=== PATIENT | female | born 1990 ===

== ENCOUNTER 2020-05-05 02:07 | Inpatient (IN) | payer SELFPAY ==
[2020-05-05] MEDS ORDERED: Butorphanol 1 MG/ML SDV IVPUSH PRN (05:32)
[2020-05-05] MEDS ORDERED: Sodium Chloride 0.9% 10 ML Syringe FLUSH PRN (05:32)
[2020-05-05] MEDS ORDERED: Misoprostol 200 MCG Tab PO PRN (05:32)
[2020-05-05] MEDS ORDERED: Lidocaine 1% 50 ML MDV INJECT PRN (05:32)
[2020-05-05] MEDS ORDERED: Nalbuphine 10 MG/1 ML Vial IVPUSH PRN (05:32)
[2020-05-05] MEDS ORDERED: Water For Irrigation,Sterile 1,000 ML Container IRR PRN (05:32)
[2020-05-05] MEDS ORDERED: Sodium Chloride 0.9% 2.5 ML Syringe FLUSH PRN (05:32)
[2020-05-05] MEDS ORDERED: Tranexamic Acid 1,000 MG in Sodium Chloride 0.9% 100 ML IV PRN (05:32)
[2020-05-05] MEDS ORDERED: Carboprost Tromethamine 250 MCG/1 ML Amp IM PRN (05:32)
[2020-05-05] MEDS ORDERED: Sodium Chloride 0.9% 10 ML SDV IV PRN (05:32)
[2020-05-05] MEDS ORDERED: Methylergonovine 0.2 MG/1 ML Amp IM PRN ×2 (05:32→14:31)
[2020-05-05] MEDS ORDERED: Lactated Ringers 1,000 ML IV SCH (05:45)
[2020-05-05] MEDS ORDERED: Oxytocin/0.9 % Sodium Chloride 30 UNIT/500 ML BAG IV SCH ×2 (05:45→11:15)
[2020-05-05] MEDS ORDERED: fentaNYL 100 MCG/2 ML SDV ONE (08:02)
[2020-05-05] MEDS ORDERED: Ropivacaine 0.2% PF 2 MG/ML 20 ML SDV ONE (08:02)
[2020-05-05] MEDS ORDERED: Ropivacaine HCl/PF 100 ML ONE (08:03)
--- NOTE | 2020-05-05 08:44 | PCM.PREANE ---
Preanesthetic Assessment - Procedure Proposed Procedure: CRAIG - Anesthesia/Transfusion/Family Hx Anesthesia History: Prior Anesthesia Without Reaction Family History of Anesthesia Reaction: No Transfusion History: No Prior Transfusion(s) Intubation History: Unknown - Review of Systems General: No Symptoms Pulmonary: No Symptoms Cardiovascular: No Symptoms Gastrointestinal: No Symptoms Neurological: No Symptoms Other: Reports: None - Physical Assessment NPO Status Date: 05/05/20 NPO Status Time: 08:42 Height: 1.65 m Weight: 113.398 kg ASA Class: 2 Mental Status: Alert & Oriented x3 Airway Class: Mallampati = 2 Dentition: Reports: Normal Dentition Thyro-Mental Finger Breadths: 3 Mouth Opening Finger Breadths: 3 ROM/Head Extension: Full Lungs: Clear to Auscultation Cardiovascular: Regular Rate - Lab Values: Laboratory Last Values WBC 13.35 K/uL (4.0-11.0) H 05/05/20 06:40 RBC 3.91 M/uL (4.30-5.90) L 05/05/20 06:40 Hgb 11.1 g/dL (12.0-16.0) L 05/05/20 06:40 Hct 34.6 % (36.0-46.0) L 05/05/20 06:40 MCV 88.5 fL (80.0-98.0) 05/05/20 06:40 MCH 28.4 pg (27.0-32.0) 05/05/20 06:40 MCHC 32.1 g/dL (31.0-37.0) 05/05/20 06:40 RDW Std Deviation 42.5 fl (28.0-62.0) 05/05/20 06:40 RDW Coeff of Demetria 13 % (11.0-15.0) 05/05/20 06:40 Plt Count 371 K/uL (150-400) 05/05/20 06:40 MPV 9.20 fL (7.40-12.00) 05/05/20 06:40 Nucleated RBC % 0.0 /100WBC 05/05/20 06:40 Nucleated RBCs # 0 K/uL 05/05/20 06:40 COVID-19 (KARISSA) NEGATIVE (NEGATIVE) 05/05/20 05:45 Blood Type O NEGATIVE 05/05/20 06:40 Antibody Screen NEGATIVE 05/05/20 06:40 - Allergies Allergies/Adverse Reactions: Allergies Allergy/AdvReac Type Severity Reaction Status Date / Time escitalopram Allergy Muscle Verified 06/06/16 20:44 Aches - Blood Blood Available: No Product(s) Available: None - Anesthesia Plan Pre-Op Medication Ordered: None - Acknowledgements Anesthesia Type Planned: Epidural Pt an Appropriate Candidate for the Planned Anesthesia: Yes Alternatives and Risks of Anesthesia Discussed w Pt/Guardian: Yes Pt/Guardian Understands and Agrees with Anesthesia Plan: Yes Additional Comments: in active labor. Dilated 6cm. Pain 08/05. Discussed, ? answered, permit signed, wishes to proceed. Acceptable candidate. PreAnesthesia Questionnaire HEENT History: Reports: Impaired Vision Cardiovascular History: Reports: None Respiratory History: Reports: None Gastrointestinal History: Reports: GERD, Other (See Below) Other Gastrointestinal History: with MATERIAL RECLAIMER History: Reports: Musculoskeletal History: Reports: None Neurological History: Reports: Migraines Psychiatric History: Reports: Anxiety, Depression Endocrine/Metabolic History: Reports: None Hematologic History: Reports: None Immunologic History: Reports: None Oncologic (Cancer) History: Reports: None Dermatologic History: Reports: None - Infectious Disease History Infectious Disease History: Reports: Chicken Pox - Past Surgical History HEENT Surgical History: Reports: None GI Surgical History: Reports: None Neurological Surgical History: Reports: None - SUBSTANCE USE Smoking Status *Q: Never Smoker Second Hand Smoke Exposure: No Recreational Drug Use History: No - HOME MEDS Home Medications: Home Meds Omeprazole Magnesium [Prilosec Otc] 20 mg PO QPM 05/05/20 [History] Vits #93/Iron Fum/FA [ Formula Tablet] 1 each PO QPM 05/05/20 [History] - CURRENT (IN HOUSE) MEDS Current Meds: Current Medications Butorphanol Tartrate (Stadol) 1 mg IVPUSH Q1H PRN PRN Reason: Pain Carboprost Tromethamine (Hemabate Ds) 250 mcg IM ASDIRECTED PRN PRN Reason: Post Hemorrhage Lactated Ringer's (Ringers, Lactated) 1,000 mls @ 150 mls/hr IV ASDIRECTED MONICA Last Admin: 05/05/20 06:44 Dose: 150 mls/hr Documented by: Oxytocin/Sodium Chloride (Oxytocin 30 Unit/500 Ml-Ns) 30 unit in 500 mls @ 999 mls/hr IV TITRATE MONICA Tranexamic Acid 1,000 mg/ (Sodium Chloride) 110 mls @ 660 mls/hr IV ONETIME PRN PRN Reason: Bleeding Lidocaine HCl (Xylocaine 1%) 50 ml INJECT ONETIME PRN PRN Reason: Laceration repair Methylergonovine Maleate (Methergine) 0.2 mg IM ASDIRECTED PRN PRN Reason: Post Hemorrhage Misoprostol (Cytotec) 200 mcg PO ONETIME PRN PRN Reason: Post Hemorrhage Nalbuphine HCl (Nubain) 10 mg IVPUSH Q1H PRN PRN Reason: Pain (severe 7-10) Sodium Chloride (Saline Flush) 10 ml FLUSH ASDIRECTED PRN PRN Reason: Keep Vein Open Sodium Chloride (Saline Flush) 2.5 ml FLUSH ASDIRECTED PRN PRN Reason: Keep Vein Open Sodium Chloride (Normal Saline) 10 ml IV ASDIRECTED PRN PRN Reason: IV Use Sterile Water (Sterile Water For Irrigation) 1,000 ml IRR ASDIRECTED PRN PRN Reason: delivery Discontinued Medications Fentanyl (Sublimaze) Confirm Administered Dose 100 mcg .ROUTE .[facility] ONE Stop: 05/05/20 08:03 Ropivacaine (Naropin 0.2%) Confirm Administered Dose 100 mls @ as directed .ROUTE .[facility] ONE Stop: 05/05/20 08:04 Ropivacaine (Naropin 0.2%) Confirm Administered Dose 20 ml .ROUTE .STK-MED ONE Stop: 05/05/20 08:03
[2020-05-05] MEDS ORDERED: Lanolin 100% Cream 7 GM Tube TOP PRN (14:31)
[2020-05-05] MEDS ORDERED: Witch Hazel Medicated Pads 40/Jar TOP PRN (14:31)
[2020-05-05] MEDS ORDERED: Benzocaine/Menthol 20%-0.5% Spray 78 GM Cannister TOP PRN (14:31)
[2020-05-05] MEDS ORDERED: Acetaminophen 500 MG Tab PO PRN (14:31)
[2020-05-05] MEDS ORDERED: Ibuprofen 400 MG Tab PO PRN (14:31)
[2020-05-05] MEDS ORDERED: Docusate Sodium 100 MG Cap PO PRN (14:31)
[2020-05-05] MEDS ORDERED: Bisacodyl 10 MG Supp RECTAL PRN (14:31)
--- NOTE | 2020-05-05 14:38 | PCM.DEL ---
<Ponce Graff - Last Filed: 05/06/20 00:54> L & D Note - General Info Date of Service: 05/05/20 - Delivery Note Labor: Spontaneous, Augmented by ARM, Augmented by Oxytocin Delivery Outcome: Livebirth Infant Delivery Method: Spontaneous Vaginal Delivery-Single Delivery Mode: Spontaneous Presentation: Left Occiput Anterior (CARLOS) Nuchal Cord: None Anesthesia Type: Epidural Amniotic Fluid Description: Clear Episiotomy Type: None Laceration: 2nd Degree Suture size: 3-0 (monocryl) Placenta: Intact, Spontaneous Cord: 3 Vessels Estimated Blood Loss: 100 Resuscitation Needed: No : Suctioned, Bulb Syringe, Stimulated, Warmed Second Stage Interventions: Reports: Pushing Effectively, Pushing, Feet in Foot Rests Delivery Comments (Free Text/Narrative):: liveborn female infant, weight 3280g, apgars 8 and 9 - Patient Data Weight - Most Recent: 113.398 kg Lab Results Last 24 Hours: Laboratory Results - last 24 hr 05/05/20 05/05/20 05/05/20 Range/Units 05:45 06:40 06:40 WBC 13.35 H (4.0-11.0) K/uL RBC 3.91 L (4.30-5.90) M/uL Hgb 11.1 L (12.0-16.0) g/dL Hct 34.6 L (36.0-46.0) % MCV 88.5 (80.0-98.0) fL MCH 28.4 (27.0-32.0) pg MCHC 32.1 (31.0-37.0) g/dL RDW Std Deviation 42.5 (28.0-62.0) fl RDW Coeff of Demetria 13 (11.0-15.0) % Plt Count 371 (150-400) K/uL MPV 9.20 (7.40-12.00) fL Nucleated RBC % 0.0 /100WBC Nucleated RBCs # 0 K/uL COVID-19 (KARISSA) NEGATIVE (NEGATIVE) Blood Type O NEGATIVE Antibody Screen NEGATIVE Med Orders - Current: Current Medications Discontinued Medications Butorphanol Tartrate (Stadol) 1 mg IVPUSH Q1H PRN PRN Reason: Pain Carboprost Tromethamine (Hemabate Ds) 250 mcg IM ASDIRECTED PRN PRN Reason: Post Hemorrhage Fentanyl (Sublimaze) Confirm Administered Dose 100 mcg .ROUTE .[facility] ONE Stop: 05/05/20 08:03 Last Admin: 05/05/20 11:09 Dose: Not Given Documented by: Lactated Ringer's (Ringers, Lactated) 1,000 mls @ 150 mls/hr IV ASDIRECTED MONCIA Last Admin: 05/05/20 06:44 Dose: 150 mls/hr Documented by: Oxytocin/Sodium Chloride (Oxytocin 30 Unit/500 Ml-Ns) 30 unit in 500 mls @ 999 mls/hr IV TITRATE MONICA Tranexamic Acid 1,000 mg/ (Sodium Chloride) 110 mls @ 660 mls/hr IV ONETIME PRN PRN Reason: Bleeding Ropivacaine (Naropin 0.2%) Confirm Administered Dose 100 mls @ as directed .ROUTE .[facility] ONE Stop: 05/05/20 08:04 Last Admin: 05/05/20 11:10 Dose: Not Given Documented by: Oxytocin/Sodium Chloride (Oxytocin 30 Unit/500 Ml-Ns) 30 unit in 500 mls @ 2 mls/hr IV TITRATE [facility]; Protocol Last Infusion: 05/05/20 11:46 Dose: 4 munits/min, 4 mls/hr Documented by: Lidocaine HCl (Xylocaine 1%) 50 ml INJECT ONETIME PRN PRN Reason: Laceration repair Methylergonovine Maleate (Methergine) 0.2 mg IM ASDIRECTED PRN PRN Reason: Post Hemorrhage Misoprostol (Cytotec) 200 mcg PO ONETIME PRN PRN Reason: Post Hemorrhage Nalbuphine HCl (Nubain) 10 mg IVPUSH Q1H PRN PRN Reason: Pain (severe 7-10) Ropivacaine (Naropin 0.2%) Confirm Administered Dose 20 ml .ROUTE .[facility] ONE Stop: 05/05/20 08:03 Last Admin: 05/05/20 11:08 Dose: Not Given Documented by: Sodium Chloride (Saline Flush) 10 ml FLUSH ASDIRECTED PRN PRN Reason: Keep Vein Open Sodium Chloride (Saline Flush) 2.5 ml FLUSH ASDIRECTED PRN PRN Reason: Keep Vein Open Sodium Chloride (Normal Saline) 10 ml IV ASDIRECTED PRN PRN Reason: IV Use Sterile Water (Sterile Water For Irrigation) 1,000 ml IRR ASDIRECTED PRN PRN Reason: delivery - Problem List & Annotations (1) Vaginal delivery SNOMED Code(s): 262512318 Code(s): O80 - ENCOUNTER FOR FULL-TERM UNCOMPLICATED DELIVERY Status: Acute - Problem List Review Problem List Initiated/Reviewed/Updated: Yes - Assessment Assessment:: 29yo female s/p uncomplicated - Plan Plan:: Admit for routine care Encourage Rhogam prior to discharge <Carley Gutierrez - Last Filed: 05/07/20 06:30> L & D Note - General Info Date of Service: 05/05/20 Mother's Due Date: 05/13/20 - Delivery Note Labor: Spontaneous, Augmented by ARM, Augmented by Oxytocin Delivery Outcome: Livebirth Infant Delivery Method: Spontaneous Vaginal Delivery-Single Delivery Mode: Spontaneous Presentation: Left Occiput Anterior (CARLOS) Nuchal Cord: None Anesthesia Type: Epidural Amniotic Fluid Description: Clear Episiotomy Type: None Laceration: 2nd Degree Suture size: 3-0 Placenta: Intact, Spontaneous Cord: 3 Vessels Resuscitation Needed: No : Suctioned, Bulb Syringe, Stimulated, Warmed Second Stage Interventions: Reports: Pushing Effectively, Pushing, Feet in Foot Rests Delivery Comments (Free Text/Narrative):: I was present for delivery. - Patient Data Vitals - Most Recent: Last Vital Signs Temp 36.5 C 05/06/20 07:50 Pulse 66 05/06/20 07:50 Resp 18 05/06/20 07:50 BP 121/90 05/06/20 07:50 Pulse Ox 96 05/06/20 07:50 Lab Results Last 24 Hours: Laboratory Results - last 24 hr 05/05/20 05/05/20 05/06/20 Range/Units 13:53 13:53 06:05 Hgb 9.8 L (12.0-16.0) g/dL Hct 31.1 L (36.0-46.0) % Cord ABG pH 7.361 (7.18-7.38) Cord ABG Base Excess -5 (-10--2) Cord VBG pH 7.362 (7.25-7.45) Cord VBG Base Excess -4 (-10--2) Rhogam Indicated NO, MOM+BABY RH NEG Med Orders - Current: Current Medications Acetaminophen (Tylenol Extra Strength) 500 mg PO Q4H PRN PRN Reason: Pain Acetaminophen (Tylenol Extra Strength) 1,000 mg PO Q4H PRN PRN Reason: Pain Last Admin: 05/06/20 06:22 Dose: 1,000 mg Documented by: Benzocaine/Menthol (Dermoplast Pain Relief 20%-0.5% [place]) 78 gm TOP ASDIRECTED PRN PRN Reason: Perineal Comfort Measure Last Admin: 05/05/20 16:41 Dose: 1 can Documented by: Bisacodyl (Dulcolax) 10 mg RECTAL ONETIME PRN PRN Reason: Constipation Docusate Sodium (Colace) 100 mg PO BID PRN PRN Reason: Constipation Emollient Ointment (Lansinoh Hpa) 0 gm TOP ASDIRECTED PRN PRN Reason: Sore Nipples Ibuprofen (Motrin) 400 mg PO Q4H PRN PRN Reason: Pain Ibuprofen (Motrin) 800 mg PO Q6H PRN PRN Reason: Pain Last Admin: 05/06/20 06:23 Dose: 800 mg Documented by: Methylergonovine Maleate (Methergine) 0.2 mg IM ONETIME PRN PRN Reason: Excessive Vaginal Bleeding Witch Liliana (Tucks) 1 pad TOP ASDIRECTED PRN PRN Reason: comfort care Last Admin: 05/05/20 16:41 Dose: 1 tub Documented by: Discontinued Medications Butorphanol Tartrate (Stadol) 1 mg IVPUSH Q1H PRN PRN Reason: Pain Carboprost Tromethamine (Hemabate Ds) 250 mcg IM ASDIRECTED PRN PRN Reason: Post Hemorrhage Fentanyl (Sublimaze) Confirm Administered Dose 100 mcg .ROUTE .STK-MED ONE Stop: 05/05/20 08:03 Last Admin: 05/05/20 11:09 Dose: Not Given Documented by: Lactated Ringer's (Ringers, Lactated) 1,000 mls @ 150 mls/hr IV ASDIRECTED MONICA Last Admin: 05/05/20 06:44 Dose: 150 mls/hr Documented by: Oxytocin/Sodium Chloride (Oxytocin 30 Unit/500 Ml-Ns) 30 unit in 500 mls @ 999 mls/hr IV TITRATE MONICA Tranexamic Acid 1,000 mg/ (Sodium Chloride) 110 mls @ 660 mls/hr IV ONETIME PRN PRN Reason: Bleeding Ropivacaine (Naropin 0.2%) Confirm Administered Dose 100 mls @ as directed .ROUTE .[facility] ONE Stop: 05/05/20 08:04 Last Admin: 05/05/20 11:10 Dose: Not Given Documented by: Oxytocin/Sodium Chloride (Oxytocin 30 Unit/500 Ml-Ns) 30 unit in 500 mls @ 2 mls/hr IV TITRATE [facility]; Protocol Last Infusion: 05/05/20 11:46 Dose: 4 munits/min, 4 mls/hr Documented by: Lidocaine HCl (Xylocaine 1%) 50 ml INJECT ONETIME PRN PRN Reason: Laceration repair Methylergonovine Maleate (Methergine) 0.2 mg IM ASDIRECTED PRN PRN Reason: Post Hemorrhage Misoprostol (Cytotec) 200 mcg PO ONETIME PRN PRN Reason: Post Hemorrhage Nalbuphine HCl (Nubain) 10 mg IVPUSH Q1H PRN PRN Reason: Pain (severe 7-10) Ropivacaine (Naropin 0.2%) Confirm Administered Dose 20 ml .ROUTE .[facility] ONE Stop: 05/05/20 08:03 Last Admin: 05/05/20 11:08 Dose: Not Given Documented by: Sodium Chloride (Saline Flush) 10 ml FLUSH ASDIRECTED PRN PRN Reason: Keep Vein Open Sodium Chloride (Saline Flush) 2.5 ml FLUSH ASDIRECTED PRN PRN Reason: Keep Vein Open Sodium Chloride (Normal Saline) 10 ml IV ASDIRECTED PRN PRN Reason: IV Use Sterile Water (Sterile Water For Irrigation) 1,000 ml IRR ASDIRECTED PRN PRN Reason: delivery - Problem List & Annotations (1) Vaginal delivery SNOMED Code(s): 609182010 Code(s): O80 - ENCOUNTER FOR FULL-TERM UNCOMPLICATED DELIVERY Status: Acute - Problem List Review Problem List Initiated/Reviewed/Updated: Yes - My Orders Last 24 Hours: My Active Orders 05/05/20 14:31 Acetaminophen [Tylenol Extra Strength] 1,000 mg PO Q4H PRN Acetaminophen [Tylenol Extra Strength] 500 mg PO Q4H PRN Benzocaine/Menthol [Dermoplast Pain Relief 20%-0.5% [place]] 78 gm TOP ASDIRECTED PRN Docusate Sodium [Colace] 100 mg PO BID PRN Ibuprofen [Motrin] 400 mg PO Q4H PRN Ibuprofen [Motrin] 800 mg PO Q6H PRN Lanolin [Lansinoh HPA] See Dose Instructions TOP ASDIRECTED PRN Methylergonovine [Methergine] 0.2 mg IM ONETIME PRN bisacodyL [Dulcolax] 10 mg RECTAL ONETIME PRN witch Liliana [Tucks] 1 pad TOP ASDIRECTED PRN Resuscitation Status Routine 05/05/20 14:32 Patient Status [ADT] Routine May Shower [RC] ASDIRECTED Up ad Sagrario [RC] ASDIRECTED Vital Signs [RC] PER UNIT ROUTINE Assess Lochia [WOMSER] Per Unit Routine Assess Uterine Involution [WOMSER] Per Unit Routine Perineal Care [OM.PC] Per Unit Routine Peripheral IV Discontinue [OM.PC] Routine 05/05/20 Dinner Regular Diet [DIET]
--- NOTE | 2020-05-05 15:24 | OR ---
SURGEON: Carley Gutierrez M.D. DATE OF PROCEDURE: 05/05/2020 PREOPERATIVE DIAGNOSIS: A 38-6/7 weeks' intrauterine , active spontaneous labor. POSTOPERATIVE DIAGNOSIS: A 38-6/7 weeks' intrauterine , active spontaneous labor. PROCEDURES: Pitocin augmentation of labor, artificial rupture of membranes, term spontaneous vaginal delivery, repair of second-degree laceration. PRIMARY SURGEON: Carley Gutierrez MD DENTAL INSURANCE COORDINATOR: DAV Wright. ANESTHESIA: Epidural. ESTIMATED BLOOD LOSS: Less than 300 mL. FINDINGS: Liveborn female, score of 8 and 9, weighing 3280 g. Placenta spontaneous, Schultze intact, with 3 vessels. Second-degree perineal laceration, repaired. COMPLICATIONS: None known. DISPOSITION: Mother and baby in LDR in good condition. BRIEF HISTORY: This is a 29-year-old female. She is G3, P 2-0-0-2. She presents at 38-6/7 weeks' gestation in active spontaneous labor. She progressed to 6 to 7 cm. She had artificial rupture of membranes, clear fluid was noted. However, over the following 3 hours, she had minimal progress. Therefore, Pitocin augmentation was initiated. Shortly thereafter, she did progress to complete. DESCRIPTION OF PROCEDURE: With the patient in dorsal lithotomy position, the patient pushed over one contraction to a 5+ station at which time the head was delivered spontaneously and atraumatically over the perineum with support with subsequent delivery of the infant's shoulders and body without any difficulty. The was bulb suctioned by nose and mouth and handed to the mother in the presence of the nurse attending delivery. The infant is a liveborn female, score of 8 and 9, weighing 3280 g. After the cord had ceased to pulsate, it was doubly clamped and cut. Cord blood was collected for cord ABGs as well as routine cord blood sampling. Pitocin was initiated after delivery of the to assist with delivery of the placenta, which was delivered spontaneously, Schultze intact, with 3 vessels. Upon inspection of the pelvis and perineum, there were no periurethral, vaginal sidewall, cervical, or rectal lacerations. There was a small second-degree perineal laceration that was repaired using a running lock suture of 3-0 Monocryl for the vaginal mucosa, deep running suture of the same for the perineum, and a subcuticular suture of the same for the skin. Final sponge, needle, and instrument counts were correct. There were no known complications. Mother and baby remained in LDR in good condition. RAMOS RENDON /[id number]
[2020-05-05] MEDS: Acetaminophen 500 MG Tab PO PRN (20:35)
[2020-05-05] MEDS: Ibuprofen 800 MG Tab PO PRN (20:35)
[2020-05-06] MEDS: Acetaminophen 500 MG Tab PO PRN ×2 (06:22→13:26)
[2020-05-06] MEDS: Ibuprofen 800 MG Tab PO PRN ×2 (06:23→13:27)
--- NOTE | 2020-05-06 06:43 | PCM.PNPP ---
<Ponce Graff - Last Filed: 05/06/20 06:44> - General Info Date of Service: 05/06/20 Admission Dx/Problem (Free Text): S/P . Subjective Update: Pt seen at bedside today. She is feeling well. Pain is well-controlled with tylenol and motrin. She has been ambulating well and has voided urine. Her bleeding has been heavier than in previous pregnancies, but she has not been soaking through pads. She has been tolerating oral intake with no problems. going well. Would like to be discharged at 24hrs. Functional Status: Reports: Pain Controlled, Tolerating Diet, Ambulating, Urinating - Review of Systems General: Reports: No Symptoms HEENT: Reports: No Symptoms Pulmonary: Reports: No Symptoms Cardiovascular: Reports: No Symptoms Gastrointestinal: Reports: No Symptoms Genitourinary: Reports: No Symptoms Musculoskeletal: Reports: No Symptoms Skin: Reports: No Symptoms Neurological: Reports: No Symptoms Psychiatric: Reports: No Symptoms - General Info Date of Service: 05/06/20 - Patient Data Vital Signs - Most Recent: Last Vital Signs Temp 97.9 F 05/06/20 06:00 Pulse 73 05/06/20 06:00 Resp 17 05/06/20 06:00 BP 120/81 05/06/20 06:00 Pulse Ox 99 05/06/20 06:00 Weight - Most Recent: 113.398 kg I&O - Last 24 Hours: Intake & Output 05/05/20 05/05/20 05/06/20 14:59 22:59 06:59 Output Total 175 Balance -175 Lab Results - Last 24 Hours: Laboratory Results - last 24 hr 05/05/20 05/05/20 05/05/20 Range/Units 06:40 06:40 13:53 WBC 13.35 H (4.0-11.0) K/uL RBC 3.91 L (4.30-5.90) M/uL Hgb 11.1 L (12.0-16.0) g/dL Hct 34.6 L (36.0-46.0) % MCV 88.5 (80.0-98.0) fL MCH 28.4 (27.0-32.0) pg MCHC 32.1 (31.0-37.0) g/dL RDW Std Deviation 42.5 (28.0-62.0) fl RDW Coeff of Demetria 13 (11.0-15.0) % Plt Count 371 (150-400) K/uL MPV 9.20 (7.40-12.00) fL Nucleated RBC % 0.0 /100WBC Nucleated RBCs # 0 K/uL Cord ABG pH 7.361 (7.18-7.38) Cord ABG Base Excess -5 (-10--2) Cord VBG pH 7.362 (7.25-7.45) Cord VBG Base Excess -4 (-10--2) Blood Type O NEGATIVE Antibody Screen NEGATIVE Rhogam Indicated 05/05/20 05/06/20 Range/Units 13:53 06:05 WBC (4.0-11.0) K/uL RBC (4.30-5.90) M/uL Hgb 9.8 L (12.0-16.0) g/dL Hct 31.1 L (36.0-46.0) % MCV (80.0-98.0) fL MCH (27.0-32.0) pg MCHC (31.0-37.0) g/dL RDW Std Deviation (28.0-62.0) fl RDW Coeff of Demetria (11.0-15.0) % Plt Count (150-400) K/uL MPV (7.40-12.00) fL Nucleated RBC % /100WBC Nucleated RBCs # K/uL Cord ABG pH (7.18-7.38) Cord ABG Base Excess (-10--2) Cord VBG pH (7.25-7.45) Cord VBG Base Excess (-10--2) Blood Type Antibody Screen Rhogam Indicated NO, MOM+BABY RH NEG Med Orders - Current: Current Medications Acetaminophen (Tylenol Extra Strength) 500 mg PO Q4H PRN PRN Reason: Pain Acetaminophen (Tylenol Extra Strength) 1,000 mg PO Q4H PRN PRN Reason: Pain Last Admin: 05/06/20 06:22 Dose: 1,000 mg Documented by: Benzocaine/Menthol (Dermoplast Pain Relief 20%-0.5% [place]) 78 gm TOP ASDIRECTED PRN PRN Reason: Perineal Comfort Measure Last Admin: 05/05/20 16:41 Dose: 1 can Documented by: Bisacodyl (Dulcolax) 10 mg RECTAL ONETIME PRN PRN Reason: Constipation Docusate Sodium (Colace) 100 mg PO BID PRN PRN Reason: Constipation Emollient Ointment (Lansinoh Hpa) 0 gm TOP ASDIRECTED PRN PRN Reason: Sore Nipples Ibuprofen (Motrin) 400 mg PO Q4H PRN PRN Reason: Pain Ibuprofen (Motrin) 800 mg PO Q6H PRN PRN Reason: Pain Last Admin: 05/06/20 06:23 Dose: 800 mg Documented by: Methylergonovine Maleate (Methergine) 0.2 mg IM ONETIME PRN PRN Reason: Excessive Vaginal Bleeding Witch Liliana (Tucks) 1 pad TOP ASDIRECTED PRN PRN Reason: comfort care Last Admin: 05/05/20 16:41 Dose: 1 tub Documented by: Discontinued Medications Butorphanol Tartrate (Stadol) 1 mg IVPUSH Q1H PRN PRN Reason: Pain Carboprost Tromethamine (Hemabate Ds) 250 mcg IM ASDIRECTED PRN PRN Reason: Post Hemorrhage Fentanyl (Sublimaze) Confirm Administered Dose 100 mcg .ROUTE .STK-MED ONE Stop: 05/05/20 08:03 Last Admin: 05/05/20 11:09 Dose: Not Given Documented by: Lactated Ringer's (Ringers, Lactated) 1,000 mls @ 150 mls/hr IV ASDIRECTED MONICA Last Admin: 05/05/20 06:44 Dose: 150 mls/hr Documented by: Oxytocin/Sodium Chloride (Oxytocin 30 Unit/500 Ml-Ns) 30 unit in 500 mls @ 999 mls/hr IV TITRATE MONICA Tranexamic Acid 1,000 mg/ (Sodium Chloride) 110 mls @ 660 mls/hr IV ONETIME PRN PRN Reason: Bleeding Ropivacaine (Naropin 0.2%) Confirm Administered Dose 100 mls @ as directed .ROUTE .STK-MED ONE Stop: 05/05/20 08:04 Last Admin: 05/05/20 11:10 Dose: Not Given Documented by: Oxytocin/Sodium Chloride (Oxytocin 30 Unit/500 Ml-Ns) 30 unit in 500 mls @ 2 mls/hr IV TITRATE MONICA; Protocol Last Infusion: 05/05/20 11:46 Dose: 4 munits/min, 4 mls/hr Documented by: Lidocaine HCl (Xylocaine 1%) 50 ml INJECT ONETIME PRN PRN Reason: Laceration repair Methylergonovine Maleate (Methergine) 0.2 mg IM ASDIRECTED PRN PRN Reason: Post Hemorrhage Misoprostol (Cytotec) 200 mcg PO ONETIME PRN PRN Reason: Post Hemorrhage Nalbuphine HCl (Nubain) 10 mg IVPUSH Q1H PRN PRN Reason: Pain (severe 7-10) Ropivacaine (Naropin 0.2%) Confirm Administered Dose 20 ml .ROUTE .VUELOGIC ONE Stop: 05/05/20 08:03 Last Admin: 05/05/20 11:08 Dose: Not Given Documented by: Sodium Chloride (Saline Flush) 10 ml FLUSH ASDIRECTED PRN PRN Reason: Keep Vein Open Sodium Chloride (Saline Flush) 2.5 ml FLUSH ASDIRECTED PRN PRN Reason: Keep Vein Open Sodium Chloride (Normal Saline) 10 ml IV ASDIRECTED PRN PRN Reason: IV Use Sterile Water (Sterile Water For Irrigation) 1,000 ml IRR ASDIRECTED PRN PRN Reason: delivery - Infant Interaction Infant Disposition, : at Bedside Infant Interaction: Holding Feeding: Breastfed Infant; Nursed Well Support Person: - Recovery Exam Fundal Tone: Firm Fundal Level: 1 Fingerbreadths Below Umbilicus Fundal Placement: Midline Lochia Amount: Scant Lochia Color: Rubra/Red Perineum Description: Edematous Other Perinuem Description: 2nd degree laceration Episiotomy/Laceration: Approximated Bladder Status: Voiding - Exam General: Alert, Oriented, No Acute Distress HEENT: Pupils Equal, EOMI Neck: Supple, Trachea Midline, No JVD Lungs: Clear to Auscultation, Normal Respiratory Effort, Crackles, Rales, Rhonc hi, Rub, Stridor Cardiovascular: Regular Rate, Regular Rhythm GI/Abdominal Exam: Soft, Non-Tender Extremities: Normal Inspection, Non-Tender, Pedal Edema (trace) Skin: Warm, Dry, Intact Neurological: No New Focal Deficit, Normal Speech, Normal Tone Psy/Mental Status: Alert, Normal Affect, Normal Mood - Problem List & Annotations (1) Vaginal delivery SNOMED Code(s): 940583013 Code(s): O80 - ENCOUNTER FOR FULL-TERM UNCOMPLICATED DELIVERY Status: Acute Current Visit: No - Problem List Review Problem List Initiated/Reviewed/Updated: Yes - Assessment Assessment:: 29yo female s/p uncomplicated - Plan Plan:: Admit for routine care Encourage Rhogam prior to discharge Discharge at 24 hours <Carley Gutierrez - Last Filed: 05/06/20 07:58> - Patient Data Vital Signs - Most Recent: Last Vital Signs Temp 36.5 C 05/06/20 07:50 Pulse 66 05/06/20 07:50 Resp 18 05/06/20 07:50 BP 121/90 05/06/20 07:50 Pulse Ox 96 05/06/20 07:50 Lab Results - Last 24 Hours: Laboratory Results - last 24 hr 05/05/20 05/05/20 05/06/20 Range/Units 13:53 13:53 06:05 Hgb 9.8 L (12.0-16.0) g/dL Hct 31.1 L (36.0-46.0) % Cord ABG pH 7.361 (7.18-7.38) Cord ABG Base Excess -5 (-10--2) Cord VBG pH 7.362 (7.25-7.45) Cord VBG Base Excess -4 (-10--2) Rhogam Indicated NO, MOM+BABY RH NEG Med Orders - Current: Current Medications Acetaminophen (Tylenol Extra Strength) 500 mg PO Q4H PRN PRN Reason: Pain Acetaminophen (Tylenol Extra Strength) 1,000 mg PO Q4H PRN PRN Reason: Pain Last Admin: 05/06/20 06:22 Dose: 1,000 mg Documented by: Benzocaine/Menthol (Dermoplast Pain Relief 20%-0.5% [place]) 78 gm TOP ASDIRECTED PRN PRN Reason: Perineal Comfort Measure Last Admin: 05/05/20 16:41 Dose: 1 can Documented by: Bisacodyl (Dulcolax) 10 mg RECTAL ONETIME PRN PRN Reason: Constipation Docusate Sodium (Colace) 100 mg PO BID PRN PRN Reason: Constipation Emollient Ointment (Lansinoh Hpa) 0 gm TOP ASDIRECTED PRN PRN Reason: Sore Nipples Ibuprofen (Motrin) 400 mg PO Q4H PRN PRN Reason: Pain Ibuprofen (Motrin) 800 mg PO Q6H PRN PRN Reason: Pain Last Admin: 05/06/20 06:23 Dose: 800 mg Documented by: Methylergonovine Maleate (Methergine) 0.2 mg IM ONETIME PRN PRN Reason: Excessive Vaginal Bleeding Witch Liliana (Tucks) 1 pad TOP ASDIRECTED PRN PRN Reason: comfort care Last Admin: 05/05/20 16:41 Dose: 1 tub Documented by: Discontinued Medications Butorphanol Tartrate (Stadol) 1 mg IVPUSH Q1H PRN PRN Reason: Pain Carboprost Tromethamine (Hemabate Ds) 250 mcg IM ASDIRECTED PRN PRN Reason: Post Hemorrhage Fentanyl (Sublimaze) Confirm Administered Dose 100 mcg .ROUTE .[place]-MED ONE Stop: 05/05/20 08:03 Last Admin: 05/05/20 11:09 Dose: Not Given Documented by: Lactated Ringer's (Ringers, Lactated) 1,000 mls @ 150 mls/hr IV ASDIRECTED MONICA Last Admin: 05/05/20 06:44 Dose: 150 mls/hr Documented by: Oxytocin/Sodium Chloride (Oxytocin 30 Unit/500 Ml-Ns) 30 unit in 500 mls @ 999 mls/hr IV TITRATE MONICA Tranexamic Acid 1,000 mg/ (Sodium Chloride) 110 mls @ 660 mls/hr IV ONETIME PRN PRN Reason: Bleeding Ropivacaine (Naropin 0.2%) Confirm Administered Dose 100 mls @ as directed .ROUTE .STK-MED ONE Stop: 05/05/20 08:04 Last Admin: 05/05/20 11:10 Dose: Not Given Documented by: Oxytocin/Sodium Chloride (Oxytocin 30 Unit/500 Ml-Ns) 30 unit in 500 mls @ 2 mls/hr IV TITRATE MONICA; Protocol Last Infusion: 05/05/20 11:46 Dose: 4 munits/min, 4 mls/hr Documented by: Lidocaine HCl (Xylocaine 1%) 50 ml INJECT ONETIME PRN PRN Reason: Laceration repair Methylergonovine Maleate (Methergine) 0.2 mg IM ASDIRECTED PRN PRN Reason: Post Hemorrhage Misoprostol (Cytotec) 200 mcg PO ONETIME PRN PRN Reason: Post Hemorrhage Nalbuphine HCl (Nubain) 10 mg IVPUSH Q1H PRN PRN Reason: Pain (severe 7-10) Ropivacaine (Naropin 0.2%) Confirm Administered Dose 20 ml .ROUTE .STK-MED ONE Stop: 05/05/20 08:03 Last Admin: 05/05/20 11:08 Dose: Not Given Documented by: Sodium Chloride (Saline Flush) 10 ml FLUSH ASDIRECTED PRN PRN Reason: Keep Vein Open Sodium Chloride (Saline Flush) 2.5 ml FLUSH ASDIRECTED PRN PRN Reason: Keep Vein Open Sodium Chloride (Normal Saline) 10 ml IV ASDIRECTED PRN PRN Reason: IV Use Sterile Water (Sterile Water For Irrigation) 1,000 ml IRR ASDIRECTED PRN PRN Reason: delivery - Problem List Review Problem List Initiated/Reviewed/Updated: Yes - My Orders Last 24 Hours: My Active Orders 05/05/20 14:31 Acetaminophen [Tylenol Extra Strength] 1,000 mg PO Q4H PRN Acetaminophen [Tylenol Extra Strength] 500 mg PO Q4H PRN Benzocaine/Menthol [Dermoplast Pain Relief 20%-0.5% [place]] 78 gm TOP ASDIRECTED PRN Docusate Sodium [Colace] 100 mg PO BID PRN Ibuprofen [Motrin] 400 mg PO Q4H PRN Ibuprofen [Motrin] 800 mg PO Q6H PRN Lanolin [Lansinoh HPA] See Dose Instructions TOP ASDIRECTED PRN Methylergonovine [Methergine] 0.2 mg IM ONETIME PRN bisacodyL [Dulcolax] 10 mg RECTAL ONETIME PRN witch Liliana [Tucks] 1 pad TOP ASDIRECTED PRN Resuscitation Status Routine 05/05/20 14:32 Patient Status [ADT] Routine May Shower [RC] ASDIRECTED Up ad [place] [RC] ASDIRECTED Vital Signs [RC] PER UNIT ROUTINE Assess Lochia [WOMSER] Per Unit Routine Assess Uterine Involution [WOMSER] Per Unit Routine Perineal Care [OM.PC] Per Unit Routine Peripheral IV Discontinue [OM.PC] Routine 07/10/20 Dinner Regular Diet [DIET] - Plan Plan:: Patient was seen and examined by me and I agree with above. Discharge instructions reviewed.
--- NOTE | 2020-05-06 07:23 | PCM48HPAN ---
Post Anesthesia Note - EVALUATION WITHIN 48HRS OF ANESTHETIC Vital Signs in Normal Range: Yes Patient Participated in Evaluation: Yes Respiratory Function Stable: Yes Airway Patent: Yes Cardiovascular Function Stable: Yes Hydration Status Stable: Yes Pain Control Satisfactory: Yes Nausea and Vomiting Control Satisfactory: Yes Mental Status Recovered: Yes Vital Signs: Last Vital Signs Temp 36.6 C 05/06/20 06:00 Pulse 73 05/06/20 06:00 Resp 17 05/06/20 06:00 BP 120/81 05/06/20 06:00 Pulse Ox 99 05/06/20 06:00
[2020-05-06 07:51] VITALS: BP 121/90; PULSE 66
== END 2020-05-06 16:35 | disposition home or self-care (01) | DRG 807 ==
LOC: MW.OBCHECK 02:07 → MW.OB 02:08 → MW.OBCHECK 05:32 → OBSVTOIN 13:53 → MW.OB 20:40
PROVIDERS: ADMIT Obstetrics & Gynecology; ATTEND Obstetrics & Gynecology
PROC: 10E0XZZ Delivery of Products of Conception, External Approach (ICD-10-PCS; principal; 2020-05-05)
PROC: 0KQM0ZZ Repair Perineum Muscle, Open Approach (ICD-10-PCS; 2020-05-05)
PROC: 10907ZC Drainage of Amniotic Fluid, Therapeutic from Products of Conception, Via Natural or Artificial Opening (ICD-10-PCS; 2020-05-05)
PROC: 3E0R3BZ Introduction of Anesthetic Agent into Spinal Canal, Percutaneous Approach (ICD-10-PCS; 2020-05-05)
DX: O70.1 Second degree perineal laceration during delivery (principal); Z37.0 Single live birth; Z3A.38 38 weeks gestation of pregnancy
CPT/HCPCS: 36415; 51702; 59025; 59409; 82803; 85014; 85018; 85027; 86592; 86593; 86850; 86900; 86901; A9270-GY; J2590; J7120; U0002